=== PATIENT | female | born 1945 | race Caucasian/White ===

== ENCOUNTER 2018-12-09 13:18 | Emergency (ER) | payer SELFPAY ==
[~2018-12-09] VITALS: Ht 162.6 cm; Wt 52.3 kg
[2018-12-09 13:23] VITALS: BP 112/62; PULSE 89; RESP 18; Ht 162.6 cm; Wt 52.3 kg
== END 2018-12-09 15:00 | disposition left against medical advice (07) ==
LOC: FTE 13:18
DX: Z53.21 Procedure and treatment not carried out due to patient leaving prior to being seen by health care provider (principal)

== ENCOUNTER 2018-12-11 11:38 | Observation (INO) | payer MEDICARE, MEDICAID ==
[~2018-12-11] VITALS: Ht 162.6 cm; Wt 78.0 kg
[2018-12-11] MEDS ORDERED: ASPIRIN 325 MG TAB PO STA (13:13)
--- NOTE | 2018-12-11 13:16 | ERD ---
ER Documentation Chief Complaint Chief Complaint HOMELESS, BODY PAIN, BODY PAINS HPI This is a homeless 73-year-old female who presents with multiple different complaints. Her main complaint today is chest pain or shortness of breath for approximately 1 week. She describes left-sided chest pain that is described as sharp, occasionally pleuritic with associated cough that is dry nonproductive. No hemoptysis, no productive cough of sputum. She does note exertional chest pain. No fevers or chills. ROS All systems reviewed and are negative except as per history of present illness. Medications Home Meds Reported Medications Ibuprofen* (Ibuprofen*) 200 Mg Capsule, 200 MG PO Q6, CAP 12/11/18 Ranitidine Hcl* (Ranitidine Hcl*) 150 Mg Tablet, 150 MG PO Q12, #60 TAB 12/11/18 Allergies Allergies: Coded Allergies: lithium (Unverified Allergy, Unknown, 12/11/18) Uncoded Allergies: MOST ANTIBOTICS (Allergy, Unknown, 12/09/18) OPIOIDS (Allergy, Unknown, 12/09/18) FmHx Family History: No diabetes Physical Exam Vitals Vital Signs Date Temp Pulse Resp B/P (MAP) Pulse Ox O2 O2 Flow FiO2 Time Delivery Rate 12/11/18 98.3 89 16 160/76 99 Room Air 18:25 (104) 12/11/18 78 16 125/88 98 Room Air 17:07 (100) 12/11/18 76 18 124/78 96 Room Air 14:51 (93) 12/11/18 98.3 86 16 142/71 96 Room Air 13:30 (94) 12/11/18 2 13:30 12/11/18 98.1 90 18 141/79 95 11:41 (99) Physical Exam General: Well developed, well nourished, no acute distress Head: Normocephalic, atraumatic. Eyes: Pupils equally reactive, EOM intact ENT: Moist mucous membranes Neck: Supple, no lymphadenopathy Respiratory: Lungs clear bilaterally, no distress Cardiovascular: RRR, no murmurs, rubs, or gallops Abdominal: Soft, non-tender, non-distended, no peritoneal signs : Deferred MSK: No edema, no unilateral swelling, 5/5 strength Neurologic: Alert and oriented, moving all extremities, normal speech, no focal weakness, no cerebellar signs Skin: No rash Psych: Normal mood Result Diagram: 4/24/19 1329 12/11/18 1329 Results 24 hrs Laboratory Tests Test 12/11/18 13:29 White Blood Count 13.5 10^3/ul Red Blood Count 4.40 10^6/ul Hemoglobin 13.1 g/dl Hematocrit 40.7 % Mean Corpuscular Volume 92.5 fl Mean Corpuscular Hemoglobin 29.8 pg Mean Corpuscular Hemoglobin Concent 32.2 g/dl Red Cell Distribution Width 14.1 % Platelet Count 186 10^3/UL Mean Platelet Volume 13.1 fl Immature Granulocytes % 0.300 % Neutrophils % 78.1 % Lymphocytes % 9.0 % Monocytes % 11.8 % Eosinophils % 0.6 % Basophils % 0.2 % Nucleated Red Blood Cells % 0.0 /100WBC Immature Granulocytes # 0.040 10^3/ul Neutrophils # 10.5 10^3/ul Lymphocytes # 1.2 10^3/ul Monocytes # 1.6 10^3/ul Eosinophils # 0.1 10^3/ul Basophils # 0.0 10^3/ul Nucleated Red Blood Cells # 0.0 10^3/ul Prothrombin Time 12.7 Sec Prothrombin Time Ratio 1.0 INR International Normalized Ratio 0.94 Activated Partial Thromboplast Time 30.5 Sec D-Dimer 823.08 ng/ml D-Dimer Comment Sodium Level 140 mmol/L Potassium Level 4.1 mmol/L Chloride Level 105 mmol/L Carbon Dioxide Level 27 mmol/L Anion Gap 8 Blood Urea Nitrogen 19 mg/dl Creatinine 0.48 mg/dl Est Glomerular Filtrat Rate mL/min mL/min Glucose Level 122 mg/dl Calcium Level 9.1 mg/dl Troponin I < 0.012 ng/ml Current Medications Medications Dose Sig/Isidro Start Time Status Last (Trade) Ordered Route PRN Stop Time Admin Dose Reason Admin Aspirin 325 mg ONCE STAT 12/11/18 DC (Aspirin) PO 13:13 12/11/18 13:14 Ibuprofen 600 mg ONCE ONCE 12/11/18 DC (Motrin) PO 16:00 12/11/18 16:01 Ondansetron 4 mg ER BRIDGE 12/11/18 DC HCl (Zofran PRN IV 16:00 Inj) NAUSEA/VOMITI 12/11/18 17:57 NG 650 mg ER BRIDGE 12/11/18 DC Acetaminophen PRN PO 16:00 (Tylenol .MILD PAIN 12/11/18 17:58 Tab) 1-3 OR TEMP Ranitidine 150 mg Q12 PO 12/11/18 HCl 21:00 (Zantac) Sodium 1,000 ml @ Q10H IV 12/11/18 Chloride 100 mls/hr 16:50 IV Flush 3 ml PER 12/11/18 (NS 3 ml) PROTOCOL IV 17:00 Ondansetron 4 mg Q6H PRN 12/11/18 HCl (Zofran IV 17:00 Inj) NAUSEA/VOMITI NG 650 mg Q6H PRN 12/11/18 Acetaminophen PO .PAIN 1-3 17:00 (Tylenol OR TEMP Tab) 1 tab Q6H PRN 12/11/18 DC Acetaminophen PO .MOD PAIN 17:00 / 4-6 12/11/18 17:58 Hydrocodone Bitart (Mckenzie (5/325)) Morphine 2 mg Q4H PRN 12/11/18 DC Sulfate IV .SEVERE 17:00 (morphine) PAIN 7-10 12/11/18 17:58 Docusate 100 mg Q12H PRN 12/11/18 Sodium PO 17:00 (Colace) .CONSTIPATION Magnesium 30 ml DAILY PRN 12/11/18 Hydroxide PO 17:00 (Milk Of Mag) .CONSTIPATION Bisacodyl 5 mg DAILY PRN 12/11/18 (Dulcolax) PO 17:00 .CONSTIPATION Enoxaparin 40 mg DAILY SC 12/12/18 Sodium 09:00 (Lovenox) Magnesium 400 mg DAILY PO 12/11/18 12/11/18 Oxide 17:00 18:15 (Mag-Ox 400) 10 ml Q4 PRN PO 12/11/18 Guaifenesin/ COUGH 17:00 Dextromethorp es[place]ña (Robitussin Dm Liquid Cup) Albuterol 1.25 mg Q4H RESP 12/11/18 (Proventil THERAPY PRN 17:00 0.083% (Neb)) HHN WHEEZING AND SOB Ceftriaxone 50 ml @ ONCE ONCE 12/11/18 DC 12/11/18 Sodium 100 mls/hr IVPB 17:00 18:28 12/11/18 17:55 25 mg Q6 PRN PO 12/11/18 Diphenhydrami ITCHING 17:00 ne HCl (Benadryl) IV Flush 10 ml STK-MED 12/11/18 DC 12/11/18 (NS 10 ml) ONCE .ROUTE 17:02 17:51 12/11/18 17:03 Sodium 100 ml @ ud STK-MED 12/11/18 DC 12/11/18 Chloride ONCE .ROUTE 17:02 17:51 12/11/18 17:03 Iohexol 100 ml @ ud STK-MED 12/11/18 DC 12/11/18 ONCE .ROUTE 17:02 17:51 12/11/18 17:03 Naproxen 500 mg ONCE ONCE 12/11/18 DC 12/11/18 (Naprosyn) PO 18:00 18:15 12/11/18 18:01 Procedures/MDM EKG, MONITORS, & DIAGNOSTIC IMAGING: EKG: I reviewed and interpreted a 12-lead EKG. Rhythm: Normal sinus rhythm ST Changes: No contiguous ST segment elevations T waves: No contiguous T wave inversions Impression: No evidence of acute cardiac ischemia Repeat EKG: EKG: I reviewed and interpreted a 12-lead EKG. Rhythm: Normal sinus rhythm ST Changes: No contiguous ST segment elevations T waves: No contiguous T wave inversions Impression: No evidence of acute cardiac ischemia Chest x-ray: I reviewed and interpreted a 1 view of the chest Mediastinum: No enlargement Cardiac silhouette: No cardiomegaly Airspace: Clear lung lopez bilaterally without evidence of pneumothorax Bones: No evidence of fracture CT PA IMPRESSION: No pulmonary embolism. No thoracic aortic aneurysm or dissection. No alveolar pneumonia. Scattered ill-defined noncalcified nodular densities in both lungs. Question bronchiolitis. Vascular calcifications. Mild cardiomegaly. PROCEDURES: None LAB INTERPRETATION: * Negative troponin * D dimer positive, CTPA ordered MEDICAL DECISION MAKING: The patient's history, physical exam and clinical presentation is concerning for possible cardiogenic etiology and acute coronary syndrome. The patient has an additional myriad complaints but likely stems from social issues and homelessness. A social work faculty member involvement is likely necessary. Based on the patient's clinical exam and history and risk factors, I have a much lower clinical concern for pulmonary embolism, acute aortic dissection, pneumothorax, pneumonia, cardiac tamponade HEART Score: 2-3 MACE Rate: 1.7% Shared Decision Making: We had a conversation regarding risk stratification, MACE rate, and the risks, benefits, alternatives of disposition planning options. Disposition planning: Admit for cardiac evaluation given limited resources, homelessness ER COURSE: * Aspirin provided * Patient with mild headache. Motrin provided. Asymptomatic currently. CONSULTATION: None DISPOSITION PLAN: Telemetry admission for management of chest pain to rule out acute coronary syndrome, serial enzymes, risk stratification and consideration of provocative testing CONSULTATION: Accepting care team and consultations: I discussed the current laboratory data, diagnostic imaging and emergency care provided. Admitting team: Dr. Flores Admitting team indication: Insurance directed Departure Diagnosis: Primary Impression: Chest pain Chest pain type: unspecified Qualified Codes: R07.9 - Chest pain, unspecified Condition: Stable [place] VALDEZ MD Dec 11, 2018 13:16
[2018-12-11] MEDS ORDERED: RANI150T5 PO (14:13)
[2018-12-11] MEDS ORDERED: IBUP-1982 PO (14:13)
[2018-12-11] MEDS ORDERED: ONDANSETRON 4 MG INJ IV PRN ×2 (16:00→17:00)
[2018-12-11] MEDS ORDERED: ACETAMINOPHEN 325 MG TAB PO PRN ×2 (16:00→17:00)
[2018-12-11] MEDS ORDERED: IBUPROFEN 600 MG TAB PO ONE (16:00)
[2018-12-11] MEDS ORDERED: BISACODYL (EC) 5 MG TAB PO PRN (17:00)
[2018-12-11] MEDS ORDERED: ALBUTEROL 0.083% (NEB) 2.5 MG/3 ML AMP HHN PRN (17:00)
[2018-12-11] MEDS ORDERED: NACL 0.9% 3 ML SYG IV SCH (17:00)
[2018-12-11] MEDS ORDERED: DOCUSATE SODIUM 100 MG CAP PO PRN (17:00)
[2018-12-11] MEDS ORDERED: morphine 2 MG INJ IV PRN (17:00)
[2018-12-11] MEDS ORDERED: CEFTRIAXONE 2 GM/50 ML (PMX) 50 ML IVPB ONE (17:00)
[2018-12-11] MEDS ORDERED: HYDROCODONE/APAP (5/325) TAB PO PRN (17:00)
[2018-12-11] MEDS ORDERED: DIPHENHYDRAMINE 25 MG CAP PO PRN (17:00)
[2018-12-11] MEDS ORDERED: MAGNESIUM HYDROXIDE 30ML CUP PO PRN (17:00)
[2018-12-11] MEDS ORDERED: GUAIFENESIN/DM 5ML CUP PO PRN (17:00)
[2018-12-11] MEDS ORDERED: IOHEXOL 100 ML ONE (17:02)
[2018-12-11] MEDS ORDERED: SOD CHLORIDE 0.9% 100 ML ONE (17:02)
[2018-12-11] MEDS ORDERED: NAPROXEN 500 MG TAB PO ONE (18:00)
[2018-12-11] MEDS: MAGNESIUM OXIDE 400 MG TAB PO SCH (18:15)
[2018-12-11] MEDS: SOD CHLORIDE 0.9% 1,000 ML IV SCH (21:27)
[2018-12-11 21:55] VITALS: PULSE 82
[2018-12-11 21:59] VITALS: BP 96/53; PULSE 78; RESP 19
[2018-12-11] MEDS: RANITIDINE 150 MG TAB PO SCH (22:27)
--- NOTE | 2018-12-11 22:37 | HP ---
Date/Time of Note Date/Time of Note DATE: 12/11/18 TIME: 22:27 Assessment/Plan VTE Prophylaxis Pharmacological prophylaxis: LMWH Lines/Catheters IV Catheter Type (from Nrs): Saline Lock Assessment/Plan Hospital Course CC weakness LOS CO[place]ES cough, weak, poor appetite. homeless, smoker. wheezing? no focal deficits/ vision/ speech loss. ER- sr PMH Tobacco COPD? 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 Severe Sepsis? 2 to Bronchitis; ro CAP 2. CAP? 3. Tobacco Abuse; counselling/ patch 4. COPD 5. FTT/ Homelessness 6. PTSD 7. Atypical CP/ pleurisy; ro acs 8. Abn CT Chest Result Diagram: 12/11/18 1329 12/11/18 1329 Results 24hrs Laboratory Tests Test 12/11/18 13:29 12/11/18 19:32 White Blood Count 13.5 H Red Blood Count 4.40 Hemoglobin 13.1 Hematocrit 40.7 Mean Corpuscular Volume 92.5 Mean Corpuscular Hemoglobin 29.8 Mean Corpuscular Hemoglobin Concent 32.2 Red Cell Distribution Width 14.1 Platelet Count 186 Mean Platelet Volume 13.1 H Immature Granulocytes % 0.300 Neutrophils % 78.1 H Lymphocytes % 9.0 L Monocytes % 11.8 H Eosinophils % 0.6 Basophils % 0.2 Nucleated Red Blood Cells % 0.0 Immature Granulocytes # 0.040 H Neutrophils # 10.5 H Lymphocytes # 1.2 Monocytes # 1.6 H Eosinophils # 0.1 Basophils # 0.0 Nucleated Red Blood Cells # 0.0 Prothrombin Time 12.7 Prothrombin Time Ratio 1.0 INR International Normalized Ratio 0.94 Activated Partial Thromboplast Time 30.5 D-Dimer 823.08 H D-Dimer Comment Sodium Level 140 Potassium Level 4.1 Chloride Level 105 Carbon Dioxide Level 27 Anion Gap 8 Blood Urea Nitrogen 19 Creatinine 0.48 Est Glomerular Filtrat Rate mL/min Glucose Level 122 Calcium Level 9.1 Troponin I < 0.012 < 0.012 Creatine Kinase 81 Creatine Kinase Index 3.0 Creatinine Kinase MB (Mass) 2.47 H HPI/ROS Admit Date/Time Admit Date/Time Dec 11, 2018 at 15:54 PMH/Family/Social Past Medical History Medications Current Medications Ranitidine HCl (Zantac) 150 mg Q12 PO ; Start 12/11/18 at 21:00 Sodium Chloride 1,000 ml @ 100 mls/hr Q10H IV Last administered on 12/11/18at 21:27; Admin Dose 100 MLS/HR; Start 12/11/18 at 16:50 IV Flush (NS 3 ml) 3 ml PER PROTOCOL IV ; Start 12/11/18 at 17:00 Ondansetron HCl (Zofran Inj) 4 mg Q6H PRN IV NAUSEA/VOMITING; Start 12/11/18 at 17:00 Acetaminophen (Tylenol Tab) 650 mg Q6H PRN PO .PAIN 1-3 OR TEMP; Start 12/11/18 at 17:00 Docusate Sodium (Colace) 100 mg Q12H PRN PO .CONSTIPATION; Start 12/11/18 at 17:00 Magnesium Hydroxide (Milk Of Mag) 30 ml DAILY PRN PO .CONSTIPATION; Start 12/11/18 at 17:00 Bisacodyl (Dulcolax) 5 mg DAILY PRN PO .CONSTIPATION; Start 12/11/18 at 17:00 Enoxaparin Sodium (Lovenox) 40 mg DAILY SC ; Start 12/12/18 at 09:00 Magnesium Oxide (Mag-Ox 400) 400 mg DAILY PO Last administered on 12/11/18at 18:15; Admin Dose 400 MG; Start 12/11/18 at 17:00 Guaifenesin/ Dextromethorphan (Robitussin Dm Liquid Cup) 10 ml Q4 PRN PO COUGH; Start 12/11/18 at 17:00 Albuterol (Proventil 0.083% (Neb)) 1.25 mg Q4H RESP THERAPY PRN HHN WHEEZING AND SOB; Start 12/11/18 at 17:00 Diphenhydramine HCl (Benadryl) 25 mg Q6 PRN PO ITCHING; Start 12/11/18 at 17:00 Coded Allergies: lithium (Unverified Allergy, Unknown, 12/11/18) Uncoded Allergies: MOST ANTIBOTICS (Allergy, Unknown, 12/09/18) OPIOIDS (Allergy, Unknown, 12/09/18) Social History Smoking Status: Current every day smoker Exam/Review of Systems Vital Signs Vitals Vital Signs Date Temp Pulse Resp B/P (MAP) Pulse Ox O2 O2 Flow FiO2 Time Delivery Rate 12/11/18 98.6 78 19 96/53 (67) 90 21:59 12/11/18 Room Air 21:33 12/11/18 2 13:30 RIA DAVISON MD Dec 11, 2018 22:37
[2018-12-11] MEDS ORDERED: IBUPROFEN 600 MG TAB PO PRN (23:00)
[2018-12-11 23:59] VITALS: BP 116/55; PULSE 72; RESP 18
[2018-12-12] VITALS (10 sets, daily range): BP systolic 103–138; BP diastolic 59–77; PULSE 66–91; RESP 17–20
[2018-12-12] MEDS: SOD CHLORIDE 0.9% 1,000 ML IV SCH ×3 (02:50→12:50)
[2018-12-12] MEDS: MAGNESIUM OXIDE 400 MG TAB PO SCH (08:25)
[2018-12-12] MEDS: RANITIDINE 150 MG TAB PO SCH (08:25)
[2018-12-12] MEDS ORDERED: NICOTINE (14 MG/24 HR) PATCH TRANSDERM SCH (09:00)
[2018-12-12] MEDS ORDERED: ENOXAPARIN 40 MG/0.4 ML SYG SC SCH (09:00)
--- NOTE | 2018-12-12 14:31 | PN ---
Date/Time of Note Date/Time of Note DATE: 12/12/18 TIME: 14:30 Assessment/Plan VTE Prophylaxis Risk score (from Ns)>0 risk: 3 SCD applied (from Ns): No SCD contraindicated: low risk/ambulating Pharmacological prophylaxis: LMWH Lines/Catheters [facility] Peripheral IV Urinary Cath still in place: No Assessment/Plan Hospital Course A/P 1. Sirs/ Bronchitis; ro CAP 2. CAD? 3. Tobacco Abuse; counselling/ patch 4. COPD 5. FTT/ Homelessness 6. PTSD 7. Atypical CP/ pleurisy; ro acs 8. Abn CT Chest 9. Abnormal EKG, obtain echo. Stress test normal 30 years ago. 10. Nonadherence 11. Depression PE no pallor/jvd reg s1s2 no m/r/g coarse some wheezing bs+ nt nd; no r r g; no abd pain no edema/ Homans Result Diagram: 12/12/18 0557 12/12/18 0557 Results 24hrs Laboratory Tests Test 12/11/18 19:32 12/12/18 00:48 12/12/18 05:57 Creatine Kinase 81 60 Creatine Kinase Index 3.0 3.4 Creatinine Kinase MB (Mass) 2.47 H 2.03 Troponin I < 0.012 < 0.012 < 0.012 White Blood Count 11.9 H Red Blood Count 4.31 Hemoglobin 12.6 Hematocrit 40.5 Mean Corpuscular Volume 94.0 Mean Corpuscular Hemoglobin 29.2 Mean Corpuscular Hemoglobin Concent 31.1 L Red Cell Distribution Width 14.0 Platelet Count 172 Mean Platelet Volume 12.5 H Immature Granulocytes % 0.500 H Neutrophils % 71.6 Lymphocytes % 15.5 Monocytes % 11.1 H Eosinophils % 1.0 Basophils % 0.3 Nucleated Red Blood Cells % 0.0 Immature Granulocytes # 0.060 H Neutrophils # 8.5 H Lymphocytes # 1.8 Monocytes # 1.3 H Eosinophils # 0.1 Basophils # 0.0 Nucleated Red Blood Cells # 0.0 Prothrombin Time 13.9 Prothrombin Time Ratio 1.1 INR International Normalized Ratio 1.06 Sodium Level 143 Potassium Level 4.3 Chloride Level 105 Carbon Dioxide Level 33 H Anion Gap 5 Blood Urea Nitrogen 20 Creatinine 0.61 Est Glomerular Filtrat Rate mL/min Glucose Level 119 Hemoglobin A1c 5.6 Calcium Level 8.8 Phosphorus Level 4.8 Magnesium Level 2.0 Total Bilirubin 0.2 Direct Bilirubin 0.00 Indirect Bilirubin 0.2 Aspartate Amino Transf (AST/SGOT) 19 Alanine Aminotransferase (ALT/SGPT) 13 Alkaline Phosphatase 69 Total Protein 6.2 Albumin 3.4 Globulin 2.80 Albumin/Globulin Ratio 1.21 Triglycerides Level 59 Cholesterol Level 144 LDL Cholesterol, Calculated 75 HDL Cholesterol 57 Cholesterol/HDL Ratio 2.5 Thyroid Stimulating Hormone (TSH) 1.260 Exam/Review of Systems Exam Vitals Vital Signs Date Temp Pulse Resp B/P (MAP) Pulse Ox O2 O2 Flow FiO2 Time Delivery Rate 12/12/18 73 12:10 12/12/18 97.9 18 131/74 91 11:30 (93) 12/12/18 1.0 04:45 12/12/18 21 01:36 12/11/18 Room Air 21:33 Intake and Output 12/11/18 12/11/18 12/12/18 1515:00 23:00 07:00 IntakeIntake Total 1100 ml BalanceBalance 1100 ml Results Results 24hrs Laboratory Tests Test 12/11/18 19:32 12/12/18 00:48 12/12/18 05:57 Creatine Kinase 81 60 Creatine Kinase Index 3.0 3.4 Creatinine Kinase MB (Mass) 2.47 H 2.03 Troponin I < 0.012 < 0.012 < 0.012 White Blood Count 11.9 H Red Blood Count 4.31 Hemoglobin 12.6 Hematocrit 40.5 Mean Corpuscular Volume 94.0 Mean Corpuscular Hemoglobin 29.2 Mean Corpuscular Hemoglobin Concent 31.1 L Red Cell Distribution Width 14.0 Platelet Count 172 Mean Platelet Volume 12.5 H Immature Granulocytes % 0.500 H Neutrophils % 71.6 Lymphocytes % 15.5 Monocytes % 11.1 H Eosinophils % 1.0 Basophils % 0.3 Nucleated Red Blood Cells % 0.0 Immature Granulocytes # 0.060 H Neutrophils # 8.5 H Lymphocytes # 1.8 Monocytes # 1.3 H Eosinophils # 0.1 Basophils # 0.0 Nucleated Red Blood Cells # 0.0 Prothrombin Time 13.9 Prothrombin Time Ratio 1.1 INR International Normalized Ratio 1.06 Sodium Level 143 Potassium Level 4.3 Chloride Level 105 Carbon Dioxide Level 33 H Anion Gap 5 Blood Urea Nitrogen 20 Creatinine 0.61 Est Glomerular Filtrat Rate mL/min Glucose Level 119 Hemoglobin A1c 5.6 Calcium Level 8.8 Phosphorus Level 4.8 Magnesium Level 2.0 Total Bilirubin 0.2 Direct Bilirubin 0.00 Indirect Bilirubin 0.2 Aspartate Amino Transf (AST/SGOT) 19 Alanine Aminotransferase (ALT/SGPT) 13 Alkaline Phosphatase 69 Total Protein 6.2 Albumin 3.4 Globulin 2.80 Albumin/Globulin Ratio 1.21 Triglycerides Level 59 Cholesterol Level 144 LDL Cholesterol, Calculated 75 HDL Cholesterol 57 Cholesterol/HDL Ratio 2.5 Thyroid Stimulating Hormone (TSH) 1.260 Medications Medication Current Medications Ranitidine HCl (Zantac) 150 mg Q12 PO Last administered on 12/12/18at 08:25; Admin Dose 150 MG; Start 12/11/18 at 21:00 Sodium Chloride 1,000 ml @ 100 mls/hr Q10H IV Last administered on 12/12/18at 08:25; Admin Dose 100 MLS/HR; Start 12/11/18 at 16:50 IV Flush (NS 3 ml) 3 ml PER PROTOCOL IV ; Start 12/11/18 at 17:00 Ondansetron HCl (Zofran Inj) 4 mg Q6H PRN IV NAUSEA/VOMITING; Start 12/11/18 at 17:00 Acetaminophen (Tylenol Tab) 650 mg Q6H PRN PO .PAIN 1-3 OR TEMP; Start 12/11/18 at 17:00 Docusate Sodium (Colace) 100 mg Q12H PRN PO .CONSTIPATION; Start 12/11/18 at 17:00 Magnesium Hydroxide (Milk Of Mag) 30 ml DAILY PRN PO .CONSTIPATION; Start 12/11/18 at 17:00 Bisacodyl (Dulcolax) 5 mg DAILY PRN PO .CONSTIPATION; Start 12/11/18 at 17:00 Enoxaparin Sodium (Lovenox) 40 mg DAILY SC ; Start 12/12/18 at 09:00 Magnesium Oxide (Mag-Ox 400) 400 mg DAILY PO Last administered on 12/12/18at 08:25; Admin Dose 400 MG; Start 12/11/18 at 17:00 Guaifenesin/ Dextromethorphan (Robitussin Dm Liquid Cup) 10 ml Q4 PRN PO COUGH Last administered on 12/12/18at 01:46; Admin Dose 10 ML; Start 12/11/18 at 17:00 Albuterol (Proventil 0.083% (Neb)) 1.25 mg Q4H RESP THERAPY PRN HHN WHEEZING AND SOB Last administered on 12/12/18at 01:35; Admin Dose 1.25 MG; Start 12/11/18 at 17:00 Diphenhydramine HCl (Benadryl) 25 mg Q6 PRN PO ITCHING; Start 12/11/18 at 17:00 Ibuprofen (Motrin) 600 mg Q6H PRN PO MILD PAIN LEVEL 1-3; Start 12/11/18 at 23:00 Nicotine (Nicoderm 14 Mg/ 24hr) 1 patch DAILY TRANSDERM ; Start 12/12/18 at 09:00 RIA DAVISON MD Dec 12, 2018 14:31
== END 2018-12-12 21:10 | disposition left against medical advice (07) ==
LOC: E/R 11:38 → 6WM 15:54 → 5EC 12-12 17:13 → 6WM 12-12 17:20 → 5EC 12-12 18:12
PROVIDERS: ADMIT Internal Medicine; ATTEND Internal Medicine
DX: R65.10 Systemic inflammatory response syndrome (SIRS) of non-infectious origin without acute organ dysfunction (principal); J40 Bronchitis, not specified as acute or chronic; R07.9 Chest pain, unspecified; R09.1 Pleurisy; J44.9 Chronic obstructive pulmonary disease, unspecified; R62.7 Adult failure to thrive; Z68.29 Body mass index [BMI] 29.0-29.9, adult; F43.10 Post-traumatic stress disorder, unspecified; Z91.19 Patient's noncompliance with other medical treatment and regimen; F32.9 Major depressive disorder, single episode, unspecified; R94.31 Abnormal electrocardiogram [ECG] [EKG]; Z72.0 Tobacco use; Z59.0 Homelessness
CPT/HCPCS: 36415; 71045; 71275; 80048; 80053; 80061; 82550; 82553; 83036; 83735; 84100; 84145; 84443; 84484; 85025; 85378; 85610; 85730; 86480; 93005; 94664; 99285; G0378; J0696; J7030; Q9967; 99217; J1650

== ENCOUNTER 2018-12-15 13:40 | Emergency (ER) | payer MEDICARE, MEDICAID ==
[~2018-12-15] VITALS: Wt 59.1 kg
[~2018-12-15 13:40] MED LIST: IBUP-1982 PO; RANI150T5 PO
[2018-12-15 14:15] VITALS: BP 169/74; RESP 20
[2018-12-15] MEDS ORDERED: AMOX500C2 PO (17:05)
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
== END 2018-12-15 17:15 | disposition home or self-care (01) ==
LOC: E/R 13:40
DX: H66.91 Otitis media, unspecified, right ear (principal); F29 Unspecified psychosis not due to a substance or known physiological condition; I10 Essential (primary) hypertension; R40.2142 Coma scale, eyes open, spontaneous, at arrival to emergency department; R40.2362 Coma scale, best motor response, obeys commands, at arrival to emergency department; R40.2252 Coma scale, best verbal response, oriented, at arrival to emergency department
CPT/HCPCS: 99285